=== PATIENT | female | born 1990 | race Caucasian/White ===

== ENCOUNTER 2017-03-29 19:44 | Emergency (ER) | payer BC ==
[~2017-03-29] VITALS: Ht 152.4 cm; Wt 47.6 kg
--- NOTE | ~2017-03-29 | EKG ---
[place] [address] [facility] [place] [address] ELECTROCARDIOGRAM REPORT Name: MARY STOUT [facility] [id number] Admission: 03/29/17 Attend Phys: Discharge: 03/29/17 Date of : [birth year] Report #: [id number] THIS REPORT FOR: //name// [facility] ED Test Date: 2017-03-29 Test Time: 19:50:18 Pat Name: MARY STOUT Department: Room: Gender: F Care Management Associate: Tristan BRANDT : 1990 Requested By: Bev Moeller Order Number: [id number] MD: Bigg Arnett Measurements Intervals [place] Rate: 74 P: 72 TN: 132 QRS: 98 QRSD: 96 T: 33 QT: 401 QTc: 445 Interpretive Statements Sinus rhythm Borderline right axis deviation Borderline T abnormalities, anterior leads No previous ECG available for comparison Electronically Signed On 03-30-2017 13:46:57 [employer] by Bigg Arnett [email or web address] <ELECTRONICALLY SIGNED> By: Bigg Arnett MD, [facility] 03/30/17 1346 1950 [facility] Bigg Arnett MD, FACC /EPI
[~2017-03-29 19:44] MED LIST: ULTRAM 50MG TAB50 MG PO
[2017-03-29] MEDS ORDERED: TOPAMAX 25 MG T25 M1 PO ×2 (20:32→20:33)
[2017-03-29] MEDS ORDERED: MOBIC15 MG PO (21:22)
== END 2017-03-29 21:54 | disposition home or self-care (01) ==
LOC: ER 19:44
DX: R07.89 Other chest pain (principal); J06.9 Acute upper respiratory infection, unspecified

== ENCOUNTER 2017-07-06 23:34 | Emergency (ER) | payer BC ==
[~2017-07-06] VITALS: Ht 152.4 cm; Wt 45.4 kg
--- NOTE | ~2017-07-06 | EKG ---
[address] [place] [address] ELECTROCARDIOGRAM REPORT Name: MARY STOUT Room #: DEP [facility]#: [id number] Admission: 07/06/17 Attend Phys: Discharge: 07/07/17 Date of : [birth year] Report #: [id number] THIS REPORT FOR: //name// [facility] ED Test Date: 2017-07-06 Test Time: 23:51:27 Pat Name: MARY STOUT Department: Room: Gender: F Supplier Quality: MANDY : 1990 Requested By: Mary Mcgarry Order Number: [id number] MD: Bigg Arnett Measurements Intervals [place] Rate: 70 P: 22 [place]: 133 QRS: 87 QRSD: 92 T: 26 QT: 391 QTc: 422 Interpretive Statements Sinus rhythm Borderline T wave abnormalities Compared to ECG 03/29/2017 19:50:18 No significant changes Electronically Signed On 07-07-2017 8:45:26 CDT by Bigg Arnett [email or web address] <ELECTRONICALLY SIGNED> By: Bigg Arnett MD, [facility] 07/07/17 0845 [id number] 235 Bigg Arnett MD, FACC /EPI
[~2017-07-06 23:34] MED LIST changes: +MOBIC15 MG PO; +TOPAMAX 25 MG T25 M1 PO
[2017-07-06 23:59] LABS: BASOPHILS 0.6 % (0.0-2.0); EOSINOPHILS 0.9 % (0.0-3.0); HEMATOCRIT 43.1 % (37.0-47.0); HEMOGLOBIN 14.7 gm/dL (12.0-15.0); MCH 29.2 pg (26.0-34.0); MCHC 34.1 g/dL (28.0-37.0); MCV 85.7 fL (80.0-100.0); PLATELET COUNT 211 thou/uL (150-400); POLYS 44.5 % (36.0-66.0); RBC 5.03 mil/uL (4.20-5.00); RDW 12.6 % (10.5-14.5); WBC 8.9 thou/uL (4.0-11.0)
[2017-07-07 00:02] LABS: ANION GAP 13 mmol/L (7-16); BUN 14 mg/dL (7-18); CALCIUM 9.2 mg/dL (8.5-10.1); CHLORIDE 104 mmol/L (98-107); CO2 21 mmol/L (21-32); CREATININE 0.9 mg/dL (0.6-1.0); GLUCOSE 99 mg/dL (74-106); POTASSIUM 3.4 mmol/L (3.5-5.1); SODIUM 138 mmol/L (136-145)
[2017-07-07 00:11] LABS: TROPONIN-I < 0.04 ng/mL (<0.06)
[2017-07-07] MEDS ORDERED: NORCO 5-325 TA1 EACH PO (00:33)
[2017-07-07 01:00] VITALS: BP 115/74
[2017-07-07 02:09] LABS: LARGE PLATELETS OCCASIONAL
== END 2017-07-07 01:05 | disposition home or self-care (01) ==
LOC: ER 23:34
PROVIDERS: Emergency Medicine
DX: R07.9 Chest pain, unspecified (principal)

== ENCOUNTER → 2018-03-31 | Outpatient (CLI) | payer BC ==
[~2018-03-31] MED LIST changes: +NORCO 5-325 TA1 EACH PO
== END ==
LOC: CAT 08:18
DX: Z97.5 Presence of (intrauterine) contraceptive device (principal); N83.202 Unspecified ovarian cyst, left side; N83.201 Unspecified ovarian cyst, right side

== ENCOUNTER 2019-03-01 19:39 | Emergency (ER) | payer BC ==
[~2019-03-01] VITALS: Ht 152.4 cm; Wt 52.2 kg
[2019-03-01 19:41] VITALS: BP 115/79
[2019-03-01] MEDS ORDERED: PROBIOTIC1 EAC7 PO (19:47)
[2019-03-01] MEDS ORDERED: ZYRTEC10 M5 PO (19:47)
[2019-03-01] MEDS ORDERED: AUGMENTIN 500-1 EACH PO (19:47)
[2019-03-01] MEDS ORDERED: CLEOCIN HCL150 MG PO (20:17)
[2019-03-01] MEDS ORDERED: ONDANSETRON HCL4 M2 PO (20:17)
[2019-03-01] MEDS ORDERED: NORCO 10-325 T1 EACH PO (20:17)
== END 2019-03-01 20:45 | disposition home or self-care (01) ==
LOC: ER 19:39
DX: K08.89 Other specified disorders of teeth and supporting structures (principal)

== ENCOUNTER → 2019-08-13 | Outpatient (CLI) | payer OTHER ==
[~2019-08-13] MED LIST changes: +AUGMENTIN 500-1 EACH PO; +CLEOCIN HCL150 MG PO; +NORCO 10-325 T1 EACH PO; +ONDANSETRON HCL4 M2 PO; +PROBIOTIC1 EAC7 PO; +ZYRTEC10 M5 PO
== END ==
LOC: LAB 14:15
PROVIDERS: ATTEND Nurse Practitioner
DX: R05 Cough (principal); R06.02 Shortness of breath; R50.9 Fever, unspecified; Z20.828 Contact with and (suspected) exposure to other viral communicable diseases

== ENCOUNTER → 2021-02-15 | Outpatient (CLI) | payer BC | LOC: ULTRA 10:40 | PROVIDERS: ATTEND Nurse Practitioner | DX: M79.661 Pain in right lower leg (principal) ==